=== PATIENT | female | born 2005 | race African-American/Black ===

== ENCOUNTER 2024-02-03 08:34 | Emergency (ER) | payer OTHER, SELFPAY ==
--- NOTE | ~2024-02-03 | XR_ITS ---
EXAMINATION: XR FINGER, RIGHT CLINICAL INFORMATION: Pinky finger slammed in door COMPARISON: None available. TECHNIQUE: PA view of the hand, oblique and lateral views of the right fifth digit. FINDINGS: No acute fracture. Alignment is anatomic. Joint spaces are maintained. Mild soft tissue swelling of the fifth digit. No abnormal soft tissue calcifications. XR/XR finger RT min 2V IMPRESSION: No acute fracture. Mild soft tissue swelling of the right fifth digit. Electronically signed by: Randy Leary MD 02/03/2024 09:57 AM EST
[2024-02-03 08:55] VITALS: BP 109/63; PULSE 60; RESP 20; TEMP 37; O2SAT 100; BMI 22.1
[2024-02-03 11:14] VITALS: BP 113/58; PULSE 73; RESP 20; TEMP 37; O2SAT 99
--- NOTE | 2024-02-03 11:14 | ED_ITS ---
HPI - General Adult General Chief complaint: Extremity Problem Stated complaint: finger inj Time Seen by Provider: 02/03/24 11:14 Source: patient Mode of arrival: ambulatory Limitations: no limitations History of Present Illness ED Provider: Lila Carreon PA-C HPI narrative: Patient is a 18 year old assigned female at with no reported medical history presenting to the emergency department today with right 5th finger pain. Patient states that she smashed her right 5th finger in a car door and has been having pain ever since. Patient denies any dizziness, lightheadedness, abdominal pain, nausea, vomiting, fever, chills, blurry vision, double vision, loss of vision, chest pain, difficulty breathing, shortness of breath, back pain, night sweats, pain with urination, increased urinary frequency, increased urinary urgency, blood in her urine or stool, syncope or a near syncopal episode, bowel incontinence, bladder incontinence, or any other complaints at this time. Relieving factors: none Exacerbating factors: none Associated symptoms: denies other symptoms Treatments prior to arrival: none Related Data Allergies Allergy/AdvReac Type Severity Reaction Status Date / Time Penicillins Allergy Rash Verified 02/03/24 08:57 Review of Systems Constitutional: Constitutional: Reports no additional constitutional compl aints, Denies chills, Denies fever(s) and Denies night sweats Eyes: Eyes: Reports no additional eye complaints, Denies blurry vision, Denies change in vision, Denies diplopia, Denies eye discharge, Denies loss of vision and Denies eye pain ENT: Denies dizziness Cardiovascular: Cardiovascular: Reports no additional cardiovascular complaints, Denies chest pain, Denies lightheadedness, Denies Loss of Consciousness and Denies dyspnea Respiratory: Respiratory: Reports no additional respiratory complaints and Denies dyspnea Gastrointestinal: Gastrointestinal: Reports no additional gastrointestinal complaints, Denies abdominal pain, Denies melena, Denies hematochezia, Denies change in bowel habits and Denies change in stool character Genitourinary: Genitourinary: Denies hematuria, Denies urinary frequency, Denies dysuria, Denies urinary incontinence, Denies urinary hesitancy and Denies urinary urgency Musculoskeletal: Musculoskeletal: Reports no additional musculoskeletal complaints, Denies numbness and Denies tingling Comments: right 5th finger pain Neurologic: Denies dizziness, Denies loss of vision, Denies numbness and Denies tingling Psychiatric: Psychiatric: Reports no additional psychiatric complaints Endocrine: Endocrine: Reports no additional endocrine complaints Hematologic/Lymphatic: Hematologic/Lymphatic: Reports no additional hematologic/lymphatic complaints Allergic/Immunologic: Allergic/Immunologic: Reports no additional allergic/immunologic complaints PMFSH Past Medical History Attestation statement: The following information was validated with the patient. Source: old records reviewed and nursing notes reviewed Social History Social History Advance Directives: No Advance Directives Information Provided: Yes Do you have a plan to hurt others: No Plan Physical Exam ED Vital Signs: Vital Signs - 24 hr 02/03/24 08:55 02/03/24 11:14 02/03/24 11:26 Temperature 98.6 F 98.6 F 98.6 F Pulse Rate 60 73 73 Respiratory Rate 20 20 20 Blood Pressure 109/63 113/58 L 113/58 L Pulse Oximetry 100 99 99 Oxygen Delivery Method Room Air Room Air Room Air BMI result Body Mass Index 22.1 Const General: cooperative, no acute distress, alert and awake Nutritional Appearance: well nourished Orientation/consciousness: patient oriented x3 Limitations: no limitations HENMT Head: Yes normal to inspection and Yes atraumatic Ears: hearing grossly normal bilaterally and external ears normal General nose exam: Normal external nose present, no nasal discharge noted and no epistaxis Face and sinus: Yes normal facial exam, No abrasion and No laceration Mouth: Normal oral and palatal mucosa present, no drooling and no muffled voice Eyes General: appearance normal, both eyes and all related structures Periorbital: periorbital findings normal Eyelids: Yes eyelids normal Conjunctivae: conjunctivae normal Pupils: Equal, round and reactive pupils present EOM: EOMs intact bilaterally Neck Neck: Yes normal visual inspection, Yes full ROM and Yes no lymphadenopathy Chest Chest palpation & inspection: normal inspection of the chest Resp Effort & Inspection: normal respiratory effort and able to speak in complete sentences GI Inspection: Yes normal to inspection Neuro General: patient oriented x3 and moves all extremities Cranial nerves: Yes Equal, round and reactive pupils present Cognition (Neuro): normal cognition Extrem General: Yes normal to inspection, Yes full ROM and Yes capillary refill normal Psych Appearance: grossly normal Mental Status: mental status grossly normal Affect: normal affect Attitude: cooperative Thought process: Normal thought process present Thought content: Normal thought content present Insight: Good insight present (Psych) Medical Decision Making Medical Decision Making MDM Narrative: Patient is a 18 year old assigned male at with no reported medical history presenting to the emergency department today with right 5th finger pain. Patient's physical exam was unremarkable. Patient's right hand x-ray showed no acute process. I explained my physical exam findings as well as all test results to the patient. I answered all questions asked by the patient. I stressed the importance of the patient taking her medication as directed (either prescribed or as the over the counter packaging recommends). I stressed the importance of the patient following up with her primary care provider. I stressed the importance of the patient returning to the emergency department immediately if her symptoms were to worsen or if she were to develop any dizziness, shortness of breath, difficulty breathing, chest pain, blurry vision, loss of vision, nausea, vomiting, abdominal pain, fever, chills, back pain, or any other complaints. Patient verbalized agreement and understanding with this treatment plan and discharge. Differential Diagnosis Differential Diagnoses: The differential diagnosis associated with the presentation includes Right 5th finger contusion Right 5th finger fracture Admission/Observation Consideration of admission/observation: Escalation of care including admission/observation considered Patient would have been admitted to the hospital had her work up had any findings where hospital admission was appropriate and her clinical presentation warranted hospital admission. Independent Interpretation I performed an independent interpretation of an: Plain X-Ray Interpretation: My interpretation is in agreement with the radiologist's impression of this imaging study. EXAMINATION: XR FINGER, RIGHT CLINICAL INFORMATION: Pinky finger slammed in door COMPARISON: None available. TECHNIQUE: PA view of the hand, oblique and lateral views of the right fifth digit. FINDINGS: No acute fracture. Alignment is anatomic. Joint spaces are maintained. Mild soft tissue swelling of the fifth digit. No abnormal soft tissue calcifications. XR/XR finger RT min 2V IMPRESSION: No acute fracture. Mild soft tissue swelling of the right fifth digit. Electronically signed by: Randy Leary MD 02/03/2024 09:57 AM EST Dictated By: Randy Leary Signed By: Electronically signed by Randy Leary 02/03/24 0957 Radiology Impression Discussion of test interpretation with radiology: I have reviewed the radiologist's reading. Discharge Plan Discharge Clinical Impression: Contusion Patient Disposition: Home, Self-Care Instructions: Contusion in Adults (ED) Additional Instructions: Follow up with your primary care provider. Return to the emergency department immediately if your symptoms worsen or if you develop any dizziness, shortness of breath, difficulty breathing, chest pain, blurry vision, loss of vision, nausea, vomiting, abdominal pain, fever, chills, back pain, or any other complaints. Referrals: [facility] [place] Family Medicine [Provider Group] (Call to establish and follow up with a primary care provider. If you already have a primary care provider, please follow up with them.) [facility] [place] Primary Care, L[facility] [Provider Group] (Call to establish and follow up with a primary care provider. If you already have a primary care provider, please follow up with them.) [facility] [place] Primary Care[facility] [Provider Group] (Call to establish and follow up with a primary care provider. If you already have a primary care provider, please follow up with them.) Interventions: ED Discharge Assessment Last Done: 02/03/24 11:26 Discharge Date/Time: 02/03/24 11:26 Print Language: Honduran
[2024-02-03 11:26] VITALS: BP 113/58; PULSE 73; RESP 20; TEMP 37; O2SAT 99
== END 2024-02-03 11:26 | disposition home or self-care (01) ==
PROVIDERS: Emergency Provider Emergency Medicine
DX: S60.051A Contusion of right little finger without damage to nail, initial encounter (principal); X58.XXXA Exposure to other specified factors, initial encounter; Y93.89 Activity, other specified; Y92.810 Car as the place of occurrence of the external cause; Y99.8 Other external cause status
CPT/HCPCS: 73140; 99282; 99283

== ENCOUNTER 2024-04-07 08:42 | Emergency (ER) | payer OTHER, SELFPAY ==
[2024-04-07 08:51] VITALS: BP 96/59; PULSE 67; RESP 16; TEMP 36.3; O2SAT 100; BMI 28.9
--- OUTSIDE RECORDS SUMMARY | 2024-04-07 09:02 | XMS_ITS | Patient Health Record ---
Author Organization [facility] Address [address] [place] [address] Care Team Providers Care Supervisor Finishing Name Role Phone Carine Birmingham Primary Care Provider ELIZABETH Epps [phone] Allergies Allergen (clinical drug ingredient) Drug/Non Drug Allergy documented on EMR Reaction Allergy Type Onset Date Status Penicillin no rxn, from allergy testing Drug Allergy Active Reason For Referral No Information Medications Medication SIG (Take, Route, Fr equency, Duration) Notes Start Date End Date Status Amoxicillin 250 MG/5ML 5mL Orally Once for 1 days 03/02/2024 Active Vital Signs Temperature 98 degrees Fahrenheit 03/02/2024 Height 68 in 03/02/2024 Weight 190 lbs 03/02/2024 BMI 28.89 kg/m2 03/02/2024 Encounters Encounter Location Date Provider Diagnosis [facility] [address] [place] [address] [address] [place] [address] 03/02/2024 ELIZABETH TORRES Drug Allergy, initia l encounter T78.40XA and 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 She now notes that she can tolerate all fruits w/o rxn since summer 2022. Of note, the pt reports 2018 environmental allergy testing that was positive for multiple pollens. The oral allergy syndrome (OAS) is a common form of food allergy. It occurs in people who have pollen sensitivity, although not all patients have obvious hay fever or seasonal allergy symptoms. Patients typically report itching and/or mild swelling of the mouth and throat immediately following ingestion of certain uncooked fruits (including nuts) or raw vegetables. The symptoms result from contact urticaria in the oropharynx caused by pollen-related proteins in these foods. Majority of affected individuals do not develop systemic allergic reactions. We discussed: -The pt was advised that her sx were likely due to oral allergy syndrome, and that no further food allergy testing or EpiPen prescription is indicated. -Continue avoidance of foods in forms that cause oral itching -Continue benadryl 25 mg PO as needed for oral itching symptoms -We discussed the role of SCIT in treating pollen allergies and OAS. The pt denied interest at this time. -F/u PRN for further OAS discussion. 03/02/2024 Drug Allergy, initial encounter (ICD-10 - T78.40XA) Pt reports previous skin testing for penicillin, which was positive in 2018. She has never been prescribed penicillin and has never reacted before, but she avoids the medication due to allergy testing results. Pt seeks to discuss repeat allergy testing. Approximately 10% of people report an allergy to penicillin, but on further investigation up to 90% of those people are able to tolerate penicillin. Delayed maculopapular rash develop in 5-10% of people who get Ampicillin/Amoxici llin and that is not IgE mediated. These patients are not at risk for a life threatening immediate type hypersensitivity reaction. Re-exposure to Ampicillin/Amoxici llin may result in a similar delayed rash or no reaction at all. Those that do have an immediate type reaction, it is usually to the R side chain so they may be able to tolerate other penicillins. We discussed: -Scheduled the pt for repeat penicillin testing in office in 2 weeks to r/o a possible allergy. -Pt was advised that her previous testing results may not be indicative of a true penicillin allergy, and we discussed that if she passes a penicillin challenge, we may r/o this presumed allergy. 03/02/2024 Other This note was transcribed by Kojo Tripathi for Dr. Ryan Browne and Dr. Elizabeth Torres and will be completed within 7 days of date of service. LEVEL 4 Number and complexity of problems (moderate): 2 or more stable chronic illnesses - Suspected drug allergy, OAS Risks (moderate): Prescription drug management - Amoxicillin, Discussed SCIT Plan Of Treatment No Information Insurance Providers Payer Name Payer Address Payer Phone Subscriber Number Group Number Insured Name Patient Relationship to Insured Coverage Start Date Coverage End Date [address] [place] [phone] [id number] Oswaldo Ellison ([facility]) Self - patient is the insured Medical (General) History Medical History History ICD Code Oral Allergy Syndrome Suspected Drug Allergy
--- OUTSIDE RECORDS SUMMARY | 2024-04-07 09:02 | XMS_ITS | Continuity of Care Document ---
[facility] Organization [facility] Address [address] [place] [address]- Care Team Providers Care Step Down Nurse Name Role Phone Vinnie LENGTH CONTROL TESTER, Carine Fallon Primary Care Physici an Encounter [facility] Date(s): 02/14/24 - 03/15/24 [facility] [address] [place] [address]- Encounter Type: Triage Allergies, Adverse Reactions, Alerts Substance Criticality Severity Reaction Reaction Severity Status penicillin Active Immunizations Given and Recorded Vaccine Date Status Refusal Reason influenza virus vaccine, live 12/27/15 Recorded influenza virus vaccine, live 05/20/12 Recorded influenza virus vaccine, live 02/15/10 Recorded Human Papillomavirus Vaccine 12/27/15 Recorded Human Papillomavirus Vaccine 08/24/14 Recorded Meningococcal Conjugate Vaccine 08/24/14 Recorded tetanus/diphtheria/pertussis, acel(Tdap) 08/24/14 Recorded Hepatitis A Pediatric Vaccine 12/21/08 Recorded Hepatitis A Pediatric Vaccine 05/13/07 Recorded Varicella Virus Vaccine 01/20/08 Recorded Varicella Virus Vaccine 05/18/05 Recorded Poliovirus Vaccine, Inactivated 01/20/08 Recorded Poliovirus Vaccine, Inactivated 07/20/05 Recorded Poliovirus Vaccine, Inactivated 05/18/05 Recorded Poliovirus Vaccine, Inactivated 06/17/04 Recorded Measles/Mumps/Rubella Virus Vaccine 01/20/08 Recor ded Measles/Mumps/Rubella Virus Vaccine 05/18/05 Recor ded diphtheria/tetanus/pertussis, acel(DTaP) 01/20/08 Recorded diphtheria/tetanus/pertussis, acel(DTaP) 06/13/06 Recorded diphtheria/tetanus/pertussis, acel(DTaP) 07/20/05 Recorded diphtheria/tetanus/pertussis, acel(DTaP) 05/18/05 Recorded diphtheria/tetanus/pertussis, acel(DTaP) 06/17/04 Recorded pneumococcal 13-valent vaccine 05/13/07 Recorded pneumococcal 13-valent vaccine 05/18/05 Recorded pneumococcal 13-valent vaccine 06/17/04 Recorded hepatitis B pediatric vaccine 07/20/05 Recorded hepatitis B pediatric vaccine 05/18/05 Recorded hepatitis B pediatric vaccine 06/17/04 Recorded haemophilus b conjugate (PRP-T) vaccine 05/18/05 R ecorded haemophilus b conjugate (PRP-T) vaccine 06/17/04 R ecorded Medications Gardasil 9 intramuscular suspension 0.5 mL, Intramuscular, Once, repeat dose in 2 and 6 months for a total of 3 doses, # 0.5 mL, 0 Refills, Soft Stop, 02/06/24 9:54:00 AM EST, Suspension, [id number], Partial fill upon patient request if the prescription is for a schedule II opioid drug., 0.5 mL Intramuscular Once,Inst r:repeat dose in 2 and 6 months for a total of 3 doses, 174, cm, 02/06/24 9:09:00 EST, Height, 85.4, kg, 07/13/23 14:45:00 EDT, Dry Weight Start Date: 02/06/24 Status: Ordered Quantity: 0.5 Unit: mL Repeat number: 1 Indication: Encounter for immunization ondansetron 4 mg oral tablet, disintegrating 1 tablet = 4 mg, By Mouth, Every 8 hours, PRN Nausea & Vomiting, # 10 tablet, 0 Refills, Maintenance, 07/13/23 3:46:00 PM EDT, Tablet, [facility] #[id number], Partial fill upon patient request if the prescription is for a schedule II opioid drug., 174, cm, 07/13/23 14:45:00 EDT, Height, 85.4, kg, 07/13/23 14:45:00 EDT, Dry Weight Start Date: 07/13/23 Status: Ordered Quantity: 10.0 Unit: tablet Repeat number: 1 Problem List Condition Confirmation Course Effective Dates Status Health St atus Informant Obese class I Confirmed Active Right 5th toe pain Confirmed Active Social History Social History Type Response Smoking Status Never (less than 100 in lifetime) entered on: 02/06/24 Sex Sex Representation Female (finding) Patient Care team information Care Team Personnel Name: Vinnie FORTUNE, Carine Fallon Position: [facility] Associate Professional Member Role: PCP Address: [address] [place] [address] [place] [address]- Telecom: Care Team Related Persons Name: SYDNEY DUNN Insurance Providers Guarantor name: FIDEL Health Plan Information #: 1 Payer: [employer] Member Number: NA Policy Number: NA Group Number: NA
--- OUTSIDE RECORDS SUMMARY | 2024-04-07 09:02 | XMS_ITS ---
Author Organization [facility] Network Address [address] [facility] [address] [place] [address] Care Team Providers Care Machine Paint Mixer Name Role Phone Carine Birmingham Primary Care Provider ELIZABETH Epps [phone] Allergies Allergen (clinical drug ingredient) Drug/Non Drug Allergy documented on EMR Reaction Allergy Type Onset Date Status Penicillin no rxn, from allergy testing Drug Allergy Active REASON FOR VISIT Oral Allergy Syndrome, Suspected Drug Allergy, Tele Medications Medication SIG (Take, Route, Fr equency, Duration) Notes Start Date End Date Status Amoxicillin 250 MG/5ML 5mL Orally Once for 1 days 03/02/2024 Active Vital Signs Temperature 98 degrees Fahrenheit 03/02/2024 Height 68 in 03/02/2024 Weight 190 lbs 03/02/2024 BMI 28.89 kg/m2 03/02/2024 Encounters Encounter Location Date Provider Diagnosis [facility] [address] [place] [address] 03/02/2024 ELIZABETH TORRES Drug Allergy, initia l encounter T78.40XA and Oral Allergy Syndrome T78.1XXA Assessments Encounter Date Diagnosis (ICD Code) Assessment Notes Treatment Notes Treatment Clinical Notes Section Notes 03/02/2024 Drug Allergy, initial encounter (ICD-10 - [...] we may r/o this presumed allergy. 03/02/2024 Oral Allergy Syndrome (ICD-10 - T78.1XXA) [...] -F/u PRN for further OAS discussion. 03/02/2024 Other This note was transcribed by Kojo Tripathi for Dr. Ryan Browne and Dr. Elizabeth Torres and will be completed within 7 days of date of service. LEVEL 4 Number and complexity of problems (moderate): 2 or more stable chronic illnesses - Suspected drug allergy, OAS Risks (moderate): Prescription drug management - Amoxicillin, Discussed SCIT Plan Of Treatment Medication Medication Name Sig Start Date Stop Date Notes Amoxicillin 250 MG/5ML 5mL Orally Once for 1 days 03/02/20 24 Treatment Notes Assessment Notes Drug Allergy, initial encounter Pt reports previous skin testing for penicillin, [...] develop in 5-10% of people who get Ampicillin/Amoxicillin and that is not IgE mediated. These patients are not at risk for a life threatening immediate type hypersensitivity reaction. Re-exposure to Ampicillin/Amoxicillin may result in a similar delayed rash [...] challenge, we may r/o this presumed allergy. Oral Allergy Syndrome The pt also reports a previous hx [...] time. -F/u PRN for further OAS discussion. Other This note was transcribed by Kojo Tripathi for Dr. Ryan Browne and Dr. Elizabeth Torres and will be completed within 7 days of date of service. LEVEL 4 Number and complexity of problems (moderate): 2 or more stable chronic illnesses - Suspected drug allergy, OAS Risks (moderate): Prescription drug management - Amoxicillin, Discussed SCIT Next Appt Details Follow Up: 2 Weeks, Reason: Penicillin Testing Progress Notes * Oswaldo ELLISON (Nisi): 2005 (18 yo F)Acc No.[id number]:03/02/2024 Progress Notes Patient:?Oswaldo ELLISON ( Nisi) Provider:?Elizabeth Torres MD :2005???Age:18 Y???Sex:Female D ate:03/02/2024 Address:[address] [place] [address], [facility] Pcp:Carine Birmingham Subjective: * Chief Complaints: * ???Oral Allergy SyndromeSusp ected Drug AllergyTele * HPI: ???General:? We have the pleasure of seeing Oswaldo via [facility] on 03/02/2024 for evaluation of the above. The patient encounter today occurred via telehealth (telemedicine) with the patient's verbal consent. Method of Telehealth used was a real-time, interactive, secure and private audio and video. Physical location of the patient was at their home. Physical location of the physician was in their private office [facility]. The following people were present during this video call: the patient, provider, and pile driving supervisor (Kojo Tripathi). POSSIBLE FOOD REACTIONS: Foods currently avoiding - N/A - she avoids caffeine due to headaches PINEAPPLE + MELONS + BERRIES (ORAL ALLERGY SYNDROME) Most recent date of reaction: Summer 2022 Reaction(s): oral pruritus + nausea Timing after ingestion: within minutes Meds given: None Resolution: within hours Prior ingestion of this food: Y, with numerous similar rxns Has had food since the reaction? - Y, pt reports she now consumes all fruits w/o any rxns. Has epinephrine available - N Of note, the pt reports 2018 environmental allergy testing that was positive for multiple tree pollens. DRUG REACTIONS Pt reports previous skin testing for penicillin, which was positive in 2018. She has never been prescribed penicillin and has never reacted before, but she avoids the medication due to allergy testing results. Pt seeks to discuss repeat allergy testing. The patient presents today for a discussion of symptom management. * ROS:? ROS:?Constitutional? No weight change, fever, chills or anorexia.?Gastroentestinal ?No abdominal pain, no diarrhea, no constipation, no dysphagia, no reflux. .?Cardiovascular?No chest pain, palpitations or lightheadedness.?Neurological No tremors, headaches, numbness or muscle weakness..?Respiratory?No shortness of breath, cough or hemoptysis..?Endocrine?No polyuria, unusual fatigue.?Hematologic/Lymphatic No lumps in neck or groin. No gingivial bleeding or epistaxis.?Integumentary (Skin,Breast)?No rash or edema.?Genitourinary? No hematuria or dysuria.?Musculoskeletal?No weakness or muscle pain.?HEENT?See HPI.? * Medical History:? * Surgical History:?Denies Pas t Surgical History * Hospitalization/Major Diagno stic Procedure:?Denies Past Hospitalization * Family History:? Family history documented on 03/02/2024. Allergic rhinitis (season allergy): N Asthma: N Food allergy: N Urticaria: N. * Social History:?Social history documented on 03/02/2024. Smoking: nonsmoker. Alcohol: nondrinker. Environmental Exposures: An extensive record of environmental exposures at home and at work was obtained: -Visible mold or mildew in the home/work: none -Workplace allergen exposures include: none -Feather pillows on the bed (likely high in dust mites): none -Down comforter on the bed (likely high in dust mites): none -Bedroom carpeting (associated with dust mites): none -Pet: none -Indoor smoking: no. * Medications:?None * Allergies:?Penicillin: no rx n, from allergy testingno[Allergies Verified] Objective: * Vitals:?BMI:28.89Index, Wt:1 90lbs, Ht: 68 in, Temp:98F. * Physical Examination:?General appearance: No acute distress, no malnourishment, no muscle wasting Eyes:no sclera icterus, normal iris Ears, nose, mouth and throat: no hearing impairment Neck: trachea is midline Respiratory: No labored breathing or excessive use of accessory muscles CV: No varicosities in lower extremities, no edema, no cyanosis GI: No visible distention or hernia Musculoskeletal: No difficulty moving extremities Skin: No visible rashes on face, neck and extremities Psychiatric: A&O to person, place and time. Neurology: No obvious tremor or impaired gait . Assessment: * Assessment: 1.?Drug Allergy, initial enc ounter - T78.40XA (Primary)???2.?Oral Allergy Syndrome - T78.1XXA??? Plan: * Treatment: 2.?Oral Allergy Syndrome? Notes: The pt also reports a previous hx [...] time. -F/u PRN for further OAS discussion. ?? 3.?Others? Notes: This note was transcribed by Kojo Tripathi for Dr. Ryan Browne and Dr. Elizabeth Torres and will be completed within 7 days of date of service. LEVEL 4 Number and complexity of problems (moderate): 2 or more stable chronic illnesses - Suspected drug allergy, OAS Risks (moderate): Prescription drug management - Amoxicillin, Discussed SCIT ?? * Procedure Codes:? * Follow Up:?2 Weeks (Reason: Penicillin Testing) * Images: * Sign off status: Completed true * Provider:?Elizabeth Torres MD Date:? Generated for Luna vera/Jason/eTransmitting on:?04/07/2024 09:02 AM EST History and Physical Notes * Physical Examination Category Sub-Category Detail Notes Section Note s General appearance: No acute distress, no malnourishment, no muscle wasting Eyes:no sclera icterus, normal iris Ears, nose, mouth and throat: no hearing impairment Neck: trachea is midline Respiratory: No labored breathing or excessive use of accessory muscles CV: No varicosities in lower extremities, no edema, no cyanosis GI: No visible distention or hernia Musculoskeletal: No difficulty moving extremities Skin: No visible rashes on face, neck and extremities Psychiatric: A&O to person, place and time. Neurology: No obvious tremor or impaired gait
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
--- OUTSIDE RECORDS SUMMARY | 2024-04-07 09:02 | XMS_ITS ---
Author Organization [facility] Address [address] [place] [address] Care Team Providers Care Dock Grader Name Role Phone Carine Birmingham Primary Care Provider ELIZABETH Epps [phone] REASON FOR VISIT penicillin testing E/No ref on file C0 Encounters Encounter Location Date Provider Diagnosis [facility] [address] [place] [address] 03/12/2024 ELIZABETH TORRES Plan Of Treatment No Information Progress Notes * Oswaldo ELLISON (Nii): 2005 (18 yo F)Acc No.[id number]:03/12/2024 Patient:?Oswaldo ELLISON ( Nii) Provider:?Elizabeth Torres MD :2005???Age:18 Y???Sex:Female D ate:03/12/2024 Address:[place] Pcp:Carine Birmingham Subjective: * Chief Complaints: * ???1. penicillin testing E/N o ref on file C0. * Medical History:? Objective: * Vitals:? Assessment: Plan: * Treatment: * Images: * Electronic signature of ELIZABETH TORRES M.D. on 04/07/2024 at 09:01 AM EST Sign off status: Pending * Provider:?Elizabeth Torres MD Date:? Generated for Printi ng/Faxing/eTransmitting on:?04/07/2024 09:01 AM EST
--- OUTSIDE RECORDS SUMMARY | 2024-04-07 09:02 | XMS_ITS | Continuity of Care Document ---
Author Organization [facility] Address [address] [place] [address]- Care Team Providers Care Joint Finisher Name Role Phone Vinnie SOCIAL WORKER DELINQUENCY PREVENTION, Carine Fallon Primary Care Physici an Encounter [facility] Date(s): 02/28/24 - 03/29/24 [facility] [address] [place] [address]- Encounter Type: Triage Allergies, Adverse Reactions, Alerts [...] Soft Stop, 02/06/24 9:54:00 AM EST, Suspension, [id number], Partial fill upon patient request if the [...] Refills, Maintenance, 07/13/23 3:46:00 PM EDT, Tablet, [facility]/pharmacy #[id number], Partial fill upon patient request if the [...] Personnel Name: Vinnie FORTUNE, Carine Fallon Position: [facility] PCO Associate Professional Member Role: PCP Address: [address] [place] [address] [place] [address]- Telecom: Care Team Related Persons Name: SYDNEY DUNN Insurance Providers Guarantor name: FIDEL Health Plan Information #: 1 Payer: [facility] Member Number: NA Policy Number: NA Group Number: NA
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
[2024-04-07 09:17] LABS: Appearance Urine Clear; Color Urine Yellow; Glucose Urine UA Negative (Negative); Leukocyte Esterase Urine Negative (Negative); Nitrite Urine Negative (Negative); Urine Blood Negative (Negative); Urine Ketones Negative (Negative); Urine Protein Negative (Neg-Trace)
[2024-04-07 09:19] LABS: UPreg QC Valid YES; Urine Pregnancy NEGATIVE (NEGATIVE)
--- NOTE | 2024-04-07 13:15 | ED.FEMALEGU ---
HPI - Female Genitourinary General Chief complaint: Urogenital-Female Stated complaint: Vaginal irritation Time Seen by Provider: 04/07/24 12:46 Source: patient and RN notes reviewed Mode of arrival: ambulatory Limitations: no limitations History of Present Illness ED Provider: Bridgette Chowdary PA-C HPI Narrative: This is a 18-year-old female, with no known medical problems, who presents emergency department with complaints of vaginal itching and odor for the last 3-4 days. She has been using topical Vagisil with some relief. Denies any concerns for sexually transmitted infections. She is sexually active. Denies any dysuria, hematuria, urinary frequency or urgency. She has a history of bacterial vaginosis and yeast infections, symptoms feel similar. No vaginal bleeding, no vaginal discharge No complaints or concerns at this time. Vaginal discharge: none Vaginal bleeding: none Exacerbating factors: none Relieving factors: medication Associated symptoms: denies other symptoms Sexual activity: Yes Patient : No Related Data Previous Rx's ?Medication ?Instructions ?Recorded fluconazole 150 mg tablet 150 mg PO Q3D 2 doses #2 tabs 04/07/24 metronidazole 0.75 % topical gel 1 appl topical BEDTIME 5 days #45 04/07/24 grams Allergies Allergy/AdvReac Type Severity Reaction Status Date / Time Penicillins Allergy Rash Verified 04/07/24 08:53 Review of Systems Review of Systems: Yes all other systems are reviewed and are negative Constitutional: Constitutional: Reports as per [facility] Social History Social History Advance Directives: No Advance Directives Information Provided: Yes Physical Exam Vital Signs: Vital Signs: Last Vital Signs Temp 98.8 F 04/07/24 14:32 Pulse 63 04/07/24 14:32 Resp 16 04/07/24 14:32 BP 109/63 04/07/24 14:32 Pulse Ox 100 04/07/24 14:32 O2 Del Method Room Air 04/07/24 14:32 BMI result Body Mass Index 28.9 Const: General: cooperative, comfortable and no acute distress Orientation/consciousness: patient oriented x3 Limitations: no limitations HEENT: Head: Yes normal to inspection, Yes normocephalic and Yes atraumatic Ears: hearing grossly normal bilaterally General nose exam: Normal external nose present Face and sinus: Yes normal facial exam Mouth: Normal oral and palatal mucosa present, oropharynx normal and moist mucous membranes Throat: Yes posterior oropharynx normal Eyes: General: appearance normal, both eyes and all related structures Eyelids: Yes eyelids normal Conjunctivae: conjunctivae normal Sclerae: sclerae normal Pupils: Equal, round and reactive pupils present EOM: EOMs intact bilaterally Neck: Neck: Yes normal visual inspection, Yes full ROM and Yes no lymphadenopathy Lymphatic: no lymphadenopathy noted Chest: Chest palpation & inspection: normal inspection of the chest Resp: Effort & Inspection: normal respiratory effort and able to speak in complete sentences Auscultation: clear to auscultation bilaterally, no crackles, no rales, no rhonchi and no wheezes Cardio: Rate: regular rate Rhythm: regular rhythm Heart sounds: S1 normal heart sound present and S2 normal heart sound present GI: Inspection: Yes normal to inspection : Other: Pelvic examination performed with Brenna, Tech present at all times. External genitalia normal, she does have thick, white, yellow drainage noted from the vaginal vault, os is closed. No cervical motion tenderness. External Female Exam: normal external appearance and normal appearance of the urethra Speculum Exam - Vagina: normal appearance of the vagina and normal palpation Bimanual exam- vagina & uterus: normal palpation Skin: General skin exam: no rashes or lesions noted Trauma: no lacerations or abrasions Wounds: no wounds Neuro: General: patient oriented x3 and moves all extremities Cranial nerves: Yes Equal, round and reactive pupils present Extrem: General: Yes normal to inspection Right upper extremity: normal to inspection Left upper extremity: normal to inspection Right lower extremity: normal to inspection Left lower extremity: normal to inspection Medical Decision Making Medical Decision Making [facility] Narrative: This is a 18-year-old female who presents emergency department with concerns for vaginal itching, odor. On arrival, vital signs within normal limits she is speaking in full sentences under no acute distress. Vital signs within normal limits. Vaginal examination performed, concerning for EB versus candidiasis. Will treat for both. She has no concerns for STIs. Discussed this with patient. Given strict return precautions. She understands and agrees with plan. Patient stable for discharge Differential Diagnosis Differential Diagnoses: The differential diagnosis associated with the presentation includes Candidiasis, VB, PID-unlikely, STI Lab Data [facility] Lab Attestation statement: I reviewed the patient's lab results. Negative for infection, negative Labs: Lab Results 04/07/24 04/07/24 04/07/24 Range/Units 09:04 09:05 14:24 Urine Color Yellow Urine Appearance Clear Urine pH 6.0 (5.0-9.0) Ur Specific Bryant 1.020 (1.005-1.025) Urine Protein Negative (Neg-Trace) mg/dL Urine Glucose (UA) Negative (Negative) mg/dL Urine Ketones Negative (Negative) mg/dL Urine Blood Negative (Negative) Urine Nitrite Negative (Negative) Ur Leukocyte Esterase Negative (Negative) Urine Test NEGATIVE (NEGATIVE) Chlam trachomat DNA PCR NOT DETECTED (Not Detect.) N.gonorrhoeae DNA (PCR) NOT DETECTED (Not Detect.) T. vaginalis (PCR) NOT DETECTED (Not Detect) Bact vaginosis (PCR) NEGATIVE (Negative) C. krusei/glabrata (PCR) NOT DETECTED (Not Detect) Yaz group (PCR) DETECTED A (Not Detect) Discharge Plan Discharge Clinical Impression: Vaginitis Qualifiers: Chronicity: acute Qualified Code(s): N76.0 - Acute vaginitis Patient Disposition: Home, Self-Care Instructions: Bacterial Vaginosis (ED), Vaginal Discharge (ED) Additional Instructions: You were seen in the emergency department due to a vaginal complaint. We are treating you for bacterial vaginosis and Candidiasis. Candidiasis is also known as a yeast infection, this is a very, disorder that causes increased vaginal discharge, itchiness. Fluconazole as the treatment, you take this orally once, you may repeat this in 72 hours if symptoms persist. We are also treating you for bacterial vaginosis, this is treated with metronidazole, this is a vaginal gel, that you insert vaginally for 5 days. Please use full courses of medicine even if your symptoms improve. Your swabs take several days to come back, we will call you with any abnormal results. If any new or worsening symptoms occur including but not limited to increased vaginal discharge, worsening pain, please seek emergent care. Prescriptions: New fluconazole 150 mg tablet 150 mg PO Q3D Qty: 2 0RF Rx Instructions: may repeat second dose 72 hrs after first dose if symptoms persist metronidazole 0.75 % gel 1 appl topical BEDTIME 5 Days Qty: 45 0RF Stand Alone Forms: Work/School Release Interventions: ED Discharge Assessment Last Done: 04/07/24 14:32 Discharge Date/Time: 04/07/24 14:33 Print Language: Greenlandic
[2024-04-07 14:32] VITALS: BP 109/63; PULSE 63; RESP 16; TEMP 37.1; O2SAT 100
[2024-04-07 16:16] LABS: Bacterial Vaginosis PCR NEGATIVE (Negative); Candida Group PCR DETECTED (Not Detect); Candida glab krusei PCR NOT DETECTED (Not Detect); Trichomonas vaginalis PCR NOT DETECTED (Not Detect)
[2024-04-07 16:49] LABS: CT PCR NOT DETECTED (Not Detect.); NG PCR NOT DETECTED (Not Detect.)
== END 2024-04-07 14:33 | disposition home or self-care (01) ==
PROVIDERS: Physician Assistant Medical; Emergency Provider Emergency Medicine
DX: N76.0 Acute vaginitis (principal)
CPT/HCPCS: 81003; 81025; 81515; 87491; 87591; 99282; 99283

== ENCOUNTER → 2024-11-11 20:25 | Outpatient (BNV) | payer OTHER, SELFPAY | PROVIDERS: Visit Provider Radiology Diagnostic Radiology | DX: M79.644 Pain in right finger(s) (principal) | CPT/HCPCS: 73140 ==

== ENCOUNTER 2024-11-11 21:08 | Emergency (ER) | payer OTHER, SELFPAY ==
--- NOTE | ~2024-11-11 | XR_ITS ---
CLINICAL HISTORY: 5th digit pain and swelling 3 view right fifth digit/pinky finger Comparison: None Findings: No fractures or dislocations. No significant loss of joint space or osteophytes. No erosions. No radiopaque foreign body. IMPRESSION: No acute fracture or dislocation. This document has been electronically signed by: Nisreen Underwood DO on 11/11/2024 22:09:00
[2024-11-11 21:12] VITALS: BP 102/60; PULSE 68; RESP 20; TEMP 36.4; O2SAT 97; BMI 27.4
[2024-11-11 23:20] VITALS: BP 125/78; PULSE 68; RESP 15; TEMP 37.1; O2SAT 98
--- NOTE | 2024-11-11 23:20 | ED_ITS ---
HPI - Extremity Problem General Chief complaint: Extremity Problem Stated complaint: rt side pink swelling/pain Time Seen by Provider: 11/11/24 23:08 Source: patient Mode of arrival: ambulatory Limitations: no limitations History of Present Illness ED Provider: Dr. Taylor Skaggs HPI Narrative: Patient comes to the emergency room complaining of pain in the 5th right digit. Patient denies any trauma, denies fever chills, no nail biting, no pus drainage. Related Data Previous Rx's ?Medication ?Instructions ?Recorded fluconazole 150 mg tablet 150 mg PO Q3D 2 doses #2 tab s 04/07/24 metronidazole 0.75 % topical gel 1 appl topical BEDTIM E 5 days #45 04/07/24 grams metronidazole 500 mg tablet 500 mg PO BID 7 days #14 t abs 04/08/24 ibuprofen 600 mg tablet 600 mg PO TID PRN fever or p ain 11/11/24 #20 tabs Allergies Allergy/AdvReac Type Severity Reaction Status Date / Time Penicillins Allergy Rash Verified 11/11/24 21:14 Review of Systems Review of Systems: Constitutional : No Weight loss, No Fever, No Chills, No Night Sweats, No Fatigue, No Malaise ENT/Mouth : No Hearing loss, No Ear Pain, No Nasal Congestion, No Sinus Pain, No Hoarseness, No sore throat, No Rhinorrhea, No Swallowing Difficulty Eyes: No Eye Pain, No Swelling, No Redness, No Foreign Body, No Discharge, No Vision Changes Cardiovascular : No Chest Pain, No SOB, No Dyspnea on Exertion, No Orthopnea, No Edema, No Palpitations Respiratory : No Cough, No Sputum, No Wheezing, No Smoke Exposure, No Dyspnea Gastrointestinal : No Nausea, No Vomiting, No Diarrhea, No Constipation, No abdominal Pain, No Hematochezia, No Melena Genitourinary : no irregular bleeding, No Dysuria, No Urinary Frequency, No Hematuria, No Urinary Incontinence, No Urgency, No Flank Pain, No Urinary Flow Changes, No Hesitancy Musculoskeletal : No joint pain, No Myalgias, No Joint Swelling Skin : Complaining of pain in the 5th digit of the right hand Neuro : No Weakness, No Numbness, No Paresthesias, No Loss of Consciousness, No Dizziness, No Headache Psych : No Anxiety/Panic, No Depression, No SI/HI/AH/VH, No Social Issues, Heme/Lymph: No Bruising, No Bleeding,No Lymphadenopathy Endocrine : No Polyuria, No Polydipsia, No Temperature Intolerance [facility] Social History Social History Advance Directives: No Advance Directives Information Provided: No Physical Exam Exam: Exam: Appearance: Alert. Oriented X3. No acute distress. Eyes: Pupils equal, round and reactive to light. ENT: Pharynx normal. Neck: Normal inspection. Neck supple. No lymph nodes noted. No crepitus CVS: Normal heart rate and rhythm. Pulses normal. Normal S1 and S2 Respiratory: No respiratory distress. Breath sounds normal. No Wheezing. No rales Abdomen: Soft and nontender. No rigidity. No distention. Skin: Skin warm and dry. Normal skin color. Normal skin turgor. Extremities: No lower extremity edema. No Lacerations. No Rash. In patient's right hand 5th digit: There is no erythema, no pus drainage from the fingernail, no paronychia, normal flexion and extension Neuro: Oriented X 3. No motor deficit. No sensory deficit. Moving all extremities. No slurred speech. CN 2 through 12 grossly intact Psych: calm, cooperative, normal affect Vital Signs: Vital Signs: Last Vital Signs Temp 97.5 F 11/11/24 21:12 Pulse 68 11/11/24 21:12 Resp 20 11/11/24 21:12 BP 102/60 11/11/24 21:12 Pulse Ox 97 11/11/24 21:12 O2 Del Method Room Air 11/11/24 21:12 BMI result Body Mass Index 27.4 Medical Decision Making Medical Decision Making MDM Narrative: On physical exam, there is no swelling, no drainage, no obvious abnormality, normal range of motion with flexion extension. My interpretation of x-rays, no acute abnormality. It is unclear why patient has pain. May be early paronychia? At this time, there is no pus collection or swelling that would warrant an I and D Patient has plastic nails, but does not seem that patient has a subungual h ematoma Differential Diagnosis Differential Diagnoses: The differential diagnosis associated with the presentation includes (Paronychia, cellulitis, contusion) Independent Interpretation I performed an independent interpretation of an: Plain X-Ray Radiology Impression Discussion of test interpretation with radiology: I have reviewed the radiologist's reading. Radiologist Impression: No fractures or dislocations. No significant loss of joint space or osteophytes. No erosions. No radiopaque foreign body. Discharge Plan Discharge Clinical Impression: Finger pain Patient Disposition: Home, Self-Care Instructions: Arthralgia (ED) Additional Instructions: Please follow-up with your primary care physician tomorrow. If you have any worsening or new symptoms, please return to the emergency room or call 911 Prescriptions: New ibuprofen 600 mg tablet 600 mg PO TID PRN (Reason: fever or pain) Qty: 20 0RF No Action fluconazole 150 mg tablet 150 mg PO Q3D Qty: 2 0RF Rx Instructions: may repeat second dose 72 hrs after first dose if symptoms persist metronidazole 0.75 % gel 1 appl topical BEDTIME 5 Days Qty: 45 0RF metronidazole 500 mg tablet 500 mg PO BID 7 Days Qty: 14 0RF Interventions: ED Discharge Assessment Last Done: 11/11/24 23:20 Print Language: Telugu
== END 2024-11-11 23:21 | disposition home or self-care (01) ==
PROVIDERS: Emergency Provider Emergency Medicine
DX: M79.644 Pain in right finger(s) (principal); M79.89 Other specified soft tissue disorders
CPT/HCPCS: 73140; 99283